=== PATIENT | female | born 1955 | race Caucasian/White ===

== ENCOUNTER → 2016-08-29 | Outpatient (CLI) | payer OTHER ==
--- NOTE | 2016-08-30 17:04 | XR ---
EXAMINATION TYPE: XR chest 2V DATE OF EXAM: 08/29/2016 HISTORY: R05 cough. REFERENCE: NONE. FINDINGS: There is marked elevation left hemidiaphragm. There is colonic interposition on the left. T here is platelike atelectasis at the left lung base. Right lung is clear. Heart size is partially obs cured. Pleural spaces are clear. IMPRESSION: 1. MARKED ELEVATION OF THE LEFT HEMIDIAPHRAGM. 2. PLATELIKE ATELECTASIS, LEFT LUNG BASE. 3. COLONIC URETERS POSITION ON THE LEFT.
== END | disposition home or self-care (01) ==
LOC: RADXRYALE 11:33
PROVIDERS: ATTEND Physician Assistant Medical
DX: J98.11 Atelectasis (principal); J98.6 Disorders of diaphragm
CPT/HCPCS: 71020

== ENCOUNTER → 2016-09-19 | Outpatient (CLI) | payer OTHER ==
--- NOTE | 2016-09-19 09:46 | CT ---
EXAMINATION TYPE: CT chest wo con DATE OF EXAM: 09/19/2016 COMPARISON: NONE HISTORY: LLL Atelectasis CT DLP: 340.[address] of the chest was performed with lung and mediastinal window settings submitted. The la ck of contrast limits evaluation of the vascular, mediastinal and parenchymal structures including th e upper abdomen. LUNGS: Elevation of the left hemidiaphragm. The lungs are clear and free of infiltrate. No atelectasi s. No pulmonary nodule or mass is detected. No pleural effusion. No CT evidence of interstitial jordana ng disease. MEDIASTINUM/KEENA: Thoracic aorta is of normal caliber with limited evaluation given lack of contrast . The heart is not enlarged. No evidence for mediastinal mass. No lymph nodes greater than 1cm. UPPER ABDOMEN: No significant abnormality is seen. OTHER: No significant other abnormality. IMPRESSION: 1. Elevation left hemidiaphragm. Otherwise unremarkable study.
--- NOTE | 2016-09-19 10:21 | FL ---
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 COMPARISON: None. FINDINGS: There is colonic interposition on the left. Both diaphragms move normally. There is no par adoxical motion. IMPRESSION: CHILAIDITI SYNDROME
== END | disposition home or self-care (01) ==
LOC: RADCTMAIN 09:20
PROVIDERS: ATTEND Internal Medicine Sleep Medicine
DX: Q43.3 Congenital malformations of intestinal fixation (principal); Q79.1 Other congenital malformations of diaphragm
CPT/HCPCS: 71250; 76000

== ENCOUNTER → 2019-09-16 | Outpatient (CLI) | payer MEDICARE ==
[2019-09-16 11:30] VITALS: BP 129/81; PULSE 66; RESP 20; TEMP 98.2
--- NOTE | 2019-09-16 12:18 | P.HPOB ---
History of Present Illness H&P Date: 09/16/19 Chief Complaint: The patient is here for her routine gynecologic exam and ma mmogram. This is a 64-year-old G0 with an LMP of 1994. The patient is without gynecologic complaints and denies any postmenopausal bleeding. Her last pelvic exam was in 2016. Review of Systems She has gained about 16 pounds over the past 3-1/2 years. She denies respiratory or cardiac problems. GI: She has occasional constipation and thinks this is related to some of her medications. It does improve with MiraLAX. Past Medical History Past Medical History: CVA/TIA, Hypertension Additional Past Medical History / Comment(s): History of acromegaly and carotid stenosis. CVA in 2016. PAST [employer] HISTORY: She has no history of STDs. History of Any Multi-Drug Resistant Organisms: None Reported Past Surgical History: Cholecystectomy, Hernia Repair, Tonsillectomy Additional Past Surgical History / Comment(s): Umbilical hernia repair, D&C. Nuclear proton beam treatments for acromegaly in the . Past Psychological History: No Psychological Hx Reported Smoking Status: Never smoker Past Alcohol Use History: None Reported Past Drug Use History: None Reported Additional History: The patient is single and is not seeing anybody and is not sexually active since the . She is disabled. - Past Family History Father Family Medical History: Coronary Artery Disease (CAD) Additional Family Medical History / Comment(s): Paternal aunt had dementia. Mother Family Medical History: Cancer, Dementia Additional Family Medical History / Comment(s): Breast cancer. grandmother Family Medical History: Cancer Additional Family Medical History / Comment(s): Renal cancer. grandfather Family Medical History: Myocardial Infarction (NC) Medications and Allergies Home Medications Medication Instructions Recorded Confirmed Type Ascorbic Acid [Vitamin C] 1,000 mg PO DAILY 09/16/19 09/16/19 History B Complex-Vit C-Vit E-Zinc [Z-Bec] 1 tab PO DAILY 09/16/19 09/16/19 History Calcium Carbonate [Calcium] 1,200 mg PO DAILY 09/16/19 09/16/19 History Cholecalciferol (Vitamin D3) 25 mcg PO DAILY 09/16/19 09/16/19 History [Vitamin D3] Cyanocobalamin (Vitamin B-12) 1,500 mcg PO DAILY 09/16/19 09/16/19 History [Vitamin B-12] Equate Allergy Relief 10 mg PO DAILY 09/16/19 09/16/19 History Fluticasone Nasal [place] [Flonase 1 spray DAILY 09/16/19 09/16/19 History Nasal [place]] Gabapentin [Neurontin] 400 mg PO QID 09/16/19 09/16/19 History Ginkgo Biloba Adeline Extract [Ginkgo 120 mg PO DAILY 09/16/19 09/16/19 History Biloba] Hydrocodone/Acetaminophen [[place] 2 tab PO Q6HR PRN 09/16/19 09/16/19 History 5-325] Losartan/Hydrochlorothiazide 1 tab PO DAILY 09/16/19 09/16/19 History [Losartan-Hctz 100-25 mg Tab] Menthol [[place]] 1 tab PO DAILY PRN 09/16/19 09/16/19 History Montelukast [Singulair] 10 mg PO HS 09/16/19 09/16/19 History Potassium Chloride ER [K-Dur 10] 10 meq PO DAILY 09/16/19 09/16/19 History Ubidecarenone [Co Q-10] 100 mg PO DAILY 09/16/19 09/16/19 History Vitamin A 2,400 mcg PO DAILY 09/16/19 09/16/19 History Vitamin E 1 tab PO DAILY 09/16/19 09/16/19 History amLODIPine [Norvasc] 2.5 mg PO BID 09/16/19 09/16/19 History guaiFENesin [Mucinex] 2,400 mg PO DAILY 09/16/19 09/16/19 History tiZANidine [Zanaflex] 4 mg PO HS 09/16/19 09/16/19 History Allergies Allergy/AdvReac Type Severity Reaction Status Date / Time oxytetracycline AdvReac Rash/Hives Unverified 09/16/19 11:30 [From Terramycin] Exam Vital Signs Temp Pulse Resp BP Pulse Ox 09/16/19 11:24 98.2 F 66 20 129/81 96 Intake and Output 09/15/19 09/16/19 09/16/19 22:59 06:59 14:59 Other: Weight 103.873 kg Height 5 feet 4-1/2 inches, weight 229 pounds, BMI 38.7. This is a well-developed well-nourished heavyset white female who is alert and oriented times 3 in no acute distress. HEENT: Within normal limits. NECK: Supple without mass or thyromegaly. CHEST AND LUNGS: Clear to auscultation. HEART: Regular rate and rhythm. BREASTS: Are without mass or discharge. AXILLARY EXAM: Negative for adenopathy. BACK: Negative for CVA tenderness. ABDOMEN: Soft, nontender, without palpable masses. PELVIC EXAM: Normal external genitalia with mild atrophy. Cervix and vagina appear normal with mild atrophy. There is no unusual discharge. There is no evidence of prolapse. The uterus is midposition, nongravid size and nontender. There are no palpable adnexal masses or tenderness. RECTAL EXAM: Rectovaginal exam is negative for mass or tenderness and is negative for occult blood. EXTREMITIES: Nontender. IMPRESSION: 1. 64-year-old menopausal female with normal gynecologic exam. 2. Multiple medical problems. PLAN: 1. Pap smear was performed. 2. Self breast awareness was discussed with the patient. 3. Screening mammogram will be done today. 4. Osteoporosis prevention was discussed. I have stressed the importance of adequate calcium, vitamin D and regular exercise. Recommended amounts of calcium and vitamin D were also discussed. We will plan on repeating bone density testing in 2020. Her last bone density test was normal on 01/04/2016. 5. She is declining colonoscopy screening. She states she had a negative Cologuard testing in 2019. 6. She was advised to return in one year for her annual well woman exam.
--- NOTE | 2019-09-17 10:51 | MM ---
Reason for exam: screening (asymptomatic). Last mammogram was performed 3 years and 8 months ago. History: Patient is postmenopausal and is nulliparous. Family history of breast cancer in mother. Physical Findings: A clinical breast exam by your physician is recommended on an annual basis and results should be correlated with mammographic findings. MG 3D Screening Mammo W/Cad Bilateral CC and MLO view(s) were taken. Prior study comparison: January 04, 2016, bilateral MG screening mammo w CAD. November 30, 2014, bilateral MG screening mammo w CAD. The breast tissue is heterogeneously dense. This may lower the sensitivity of mammography. No significant changes when compared with prior studies. ASSESSMENT: Benign, BI-RAD 2 RECOMMENDATION: Routine screening mammogram of both breasts in 1 year.
--- NOTE | 2019-09-23 10:29 | P.PN ---
Progress Note - Text Progress Note Date: 09/23/19 OUTPATIENT FOLLOW-UP NOTE TEST(S)/RESULTS: Test results from 09/16/2019 include benign mammogram and unsatisfactory Pap smear. The Pap smear was deemed unsatisfactory because of lack of cellularity secondary to obscuring lubricant present. METHOD OF NOTIFICATION: The patient was notified by phone. PATIENT COMMENTS: The patient states it is very difficult for her to get to [facility] because of transportation issues. She will see if she is able to get a ride to redo the Pap smear. She states she will call when she can make it down. She states she has used some petroleum jelly as some type which helps her with some bladder issues, but she does not believe she got this into the vagina. DIAGNOSIS: Unsatisfactory Pap smear and benign mammogram. DISCUSSION: I recommended she avoid using the petroleum jelly or any type of lubricant for several days prior to redoing the Pap smear. I have also offered to come in on days that I'm not typically in the office, if my schedule permits. PLAN: Repeat Pap when the patient is able. Also, to return in one year for her annual well woman exam.
== END | disposition home or self-care (01) ==
LOC: WWCWWP 11:08
PROVIDERS: ATTEND Obstetrics & Gynecology
DX: Z12.31 Encounter for screening mammogram for malignant neoplasm of breast (principal); Z78.0 Asymptomatic menopausal state
CPT/HCPCS: 77063; 77067

== ENCOUNTER → 2021-11-29 | Outpatient (CLI) | payer MEDICARE ==
--- NOTE | 2021-12-01 07:50 | XR ---
EXAMINATION TYPE: XR abdomen 2V DATE OF EXAM: 11/29/2021 COMPARISON: NONE HISTORY: Pain TECHNIQUE: Single supine KUB image of the abdomen is obtained FINDINGS: Small bowel demonstrates no evidence for dilatation or air fluid levels. Gas and fecal material is seen in non-distended colon. No convincing evidence for pneumoperitoneum. No unusual calcifications. The lung bases are clear. Curvature and severe degenerative change thoracolumbar spine. IMPRESSION: 1. Overall nonobstructive bowel gas pattern.
== END | disposition home or self-care (01) ==
LOC: RADXRYALE 16:23
PROVIDERS: ATTEND Physician Assistant Medical
DX: K43.9 Ventral hernia without obstruction or gangrene (principal); K59.00 Constipation, unspecified; R14.0 Abdominal distension (gaseous)
CPT/HCPCS: 74019

== ENCOUNTER → 2024-08-31 | Outpatient (CLI) | payer MEDICARE ==
--- NOTE | 2024-08-31 15:59 | XR ---
EXAMINATION TYPE: XR Hip Bilateral Complete DATE OF EXAM: 08/31/2024 3:53 PM INDICATION: Patient age:Female; 69 years old; Reason for study: [id number] LT HIP PAIN; [facility]. pain COMPARISON: None. TECHNIQUE: Both hips were examined in the frontal and lateral projections. FINDINGS: No evidence of any acute osseous pathology, joint dislocation, or soft tissue swelling. No significant joint space narrowing or marginal osteophytosis of the hips. IMPRESSION: No acute osseous pathology. [facility], , 08/31/2024 3:57 PM
== END | disposition home or self-care (01) ==
LOC: RADXRYALE 15:34
PROVIDERS: ATTEND Physician Assistant Medical
DX: M25.552 Pain in left hip (principal)
CPT/HCPCS: 73521